=== PATIENT | male | born 1975 | race Two or more races ===

== ENCOUNTER 2019-05-26 08:33 | Emergency (ER) | payer SELFPAY ==
[~2019-05-26] VITALS: Ht 172.7 cm; Wt 108.9 kg
[2019-05-26 08:53] VITALS: BP 155/89
== END 2019-05-26 09:48 | disposition left against medical advice (07) ==
LOC: ER 08:33
DX: R10.9 Unspecified abdominal pain (principal); Z53.21 Procedure and treatment not carried out due to patient leaving prior to being seen by health care provider
CPT/HCPCS: 93005